=== PATIENT | male | born 1960 | race Caucasian/White ===

== ENCOUNTER → 2018-11-06 14:50 | Outpatient (CLI) | payer OTHER, SELFPAY ==
[2018-11-06 16:15] LABS: CRP 4.14 mg/L (0.0-3.0)
[2018-11-09 20:07] LABS: Endomysial Antibody IgA Negative (Negative)
[2018-11-11 11:03] LABS: Immunoglobulin A 159 mg/dL (90-386); t-Transglutaminase IgA <2 U/mL (0-3)
== END ==
PROVIDERS: Family Provider Family Medicine; PCP Family Medicine; Referring Provider Internal Medicine Gastroenterology; Visit Provider Internal Medicine Gastroenterology
DX: R10.9 Unspecified abdominal pain (principal)
CPT/HCPCS: 36415; 82784; 83516; 86140; 86255